=== PATIENT | female | born 1940 | race Caucasian/White ===

== ENCOUNTER 2017-02-13 16:16 | Emergency (ER) | payer MEDICARE ==
[~2017-02-13 16:16] MED LIST: ATOR20TA58 PO; CALC-98 PO; HYDR12.53 PO; LISI10TA2 PO; MOXI3DRO2 LEFTEYE; NEPA1.7D LEFTEYE; PRED5DRO16 LEFTEYE
[2017-02-13] MEDS ORDERED: IV NORMAL SALINE 1,000ML 1,000 ML IV ONE (17:00)
[2017-02-13 17:36] LABS: BASO # 0.1 x10^3/uL (0.0-0.2); BASO % 1 % (0-3); EOS # 0.2 x10^3/uL (0.0-0.7); EOS % 3 % (0-3); HEMATOCRIT 39.8 % (36.0-47.0); HEMOGLOBIN 14.2 g/dL (12.0-15.5); LYMPH # 1.3 x10^3/uL (1.0-4.8); LYMPH % 17 % (24-48); MEAN CORPUSCULAR HEMOGLOBIN 32 pg (25-35); MEAN CORPUSCULAR HGB CONC 36 g/dL (31-37); MEAN CORPUSCULAR VOLUME 90 fL (79-100); MONO # 0.7 x10^3/uL (0.0-1.1); MONO % 9 % (0-9); NEUT # 5.7 x10^3uL (1.8-7.7); NEUT % 71 % (31-73); PLATELET COUNT 269 x10^3/uL (140-400); RED BLOOD COUNT 4.41 x10^6/uL (3.50-5.40); RED CELL DISTRIBUTION WIDTH 13.4 % (11.5-14.5)
[2017-02-13 17:42] LABS: CALCIUM 9.2 mg/dL (8.5-10.1); GFR 54.1; POTASSIUM 3.3 mmol/L (3.5-5.1)
[2017-02-13 17:47] LABS: BILIRUBIN,URINE NEG (NEG); CLARITY,URINE CLEAR; COLOR,URINE YELLOW; GLUCOSE,URINE NEG (NEG); NITRITE,URINE NEG (NEG); UROBILINOGEN,URINE 0.2 mg/dL (0.2 mg/dL)
[2017-02-13 17:48] LABS: BACTERIA,URINE 0 /HPF (0-FEW); RBC,URINE RARE /HPF (0-2); SQUAMOUS EPITHELIAL CELL,UR FEW /LPF
--- NOTE | 2017-02-13 18:22 | RAD ---
CT abdomen and pelvis without contrast Indication:Abd pain mid-section w/ diarrhea x 9 days, w/o PO and IV contrast per Dr. pearce. . Technique: Contiguous axial images are obtained through the abdomen and pelvis. No intravenous or oral contrast per request. Multiplanar reformatted images obtained. Exposure: One or more of the following individualized dose reduction techniques were utilized for this examination: 1. Automated exposure control 2. Adjustment of the mA and/or kV according to patient size 3. Use of iterative reconstruction technique. Comparison:None are available Findings: Urinary tracts: No evidence of hydronephrosis. No obstructive ureteric calculus is seen. There are several tiny right renal calcifications but no obstructive intrarenal calculi. Evaluation of solid viscera, bowel and vasculature is compromised by the noncontrast technique. Lower thorax: Linear opacity in the left lung base, laterally with some adjacent pleural thickening. Pneumoperitoneum:No gross pneumoperitoneum. Liver: Unremarkable Spleen: Unremarkable Pancreas: Unremarkable Kidneys: Small low-density lesion at the lower pole of the left kidney measures 13 mm, and measures water density characteristics compatible with a cyst 2 Hounsfield units. Adrenals:No evidence of mass. Gallbladder: No calcified stone Aorta: Mild atheromatous calcifications. Lymph nodes: No significant enlargement GI tract: No bowel obstruction. No paracolonic inflammation. Appendix: Not visualized. Ascites: No gross ascites. Urinary bladder: Not opacified or distended limiting evaluation. No evidence of pelvic mass. Bones: Degenerative changes of the spine. IMPRESSION: 1. There is linear opacity at the left lung base laterally, may represent pleural-parenchymal scarring, or some atelectasis and small effusion. 2. No acute findings in the abdomen or pelvis. Electronically signed by: Paolo Almaraz MD (02/13/2017 6:19 PM) [place] [id number]
[2017-02-13 20:15] VITALS: BP 127/58
--- NOTE | 2017-02-13 22:17 | ED.ADGEN ---
Past History Past Medical History: High Cholesterol, Hypertension, Renal Disease, Other Past Surgical History: Hysterectomy, Knee Replacement, Other Alcohol Use: None Drug Use: None Adult General HPI HPI Patient is a 86-year-old woman, history of hypertension, hyperlipidemia, stage II kidney disease, who presents to the emergency department with a complaint of "dehydration". Patient states that she's been experiencing diarrhea since last Tuesday, states that she will have abdominal cramping immediately before she experiences a loose stool, whereupon cramping is resolved. No nausea or vomiting , does report decreased appetite, no urinary complaints, no fevers or chills, no flank pain, no chest pain, shortness of breath. She states that her was recently in the hospital, certainly feel, otherwise no sick contacts or exposures, no recent travel or surgery. Patient states that she was seen by her primary care provider on , days ago, at that time she laboratory studies performed that showed hyponatremia and hypokalemia, she states that she was told to stay well-hydrated, to use Lomotil, and to take potassium supplementation. She states however when she began taking Lomotil today, she that she was not supposed to take potassium with Lomotil. She states however since taking Lomotil she is only had 2 loose stools today, and the stools, as opposed to multiple episodes throughout the last several days, and that the stools are better formed. She denies any blood in her stools. She denies any pain currently, states that she feels "dry in my mouth", and as though she is dehydrated. Denies any lightheadedness, dizziness, near syncope or other complaints, no swelling extremities, no rashes. She states that she had a colonoscopy performed several years ago that was unremarkable. She states that she does have history of "a spastic colon". Review of Systems Review of Systems Constitutional: Denies fever or chills []"dehydration". Eyes: Denies change in visual acuity, redness, or eye pain [] HENT: Denies nasal congestion or sore throat [] Respiratory: Denies cough or shortness of breath [] Cardiovascular: No additional information not addressed in HPI [] GI: Abdominal cramping with diarrhea, no nausea or vomiting, no bloody stools.[] : Denies dysuria or hematuria [] Musculoskeletal: Denies back pain or joint pain [] Integument: Denies rash or skin lesions [] Neurologic: Denies headache, focal weakness or sensory changes [] Endocrine: Denies polyuria or polydipsia [] Current Medications Current Medications Current Medications Medications (Trade) Dose Ordered Sig/Ena Start Time Stop Time Status Last Admin Dose Admin Sodium Chloride 1,000 ml @ 1,000 mls/hr 1X ONCE 02/13/17 17:00 02/13/17 17:59 DC 02/13/17 17:15 1,000 MLS/HR Allergies Allergies Allergies Coded Allergies Type Severity Reaction Last Updated Verified Tetanus Vaccines and Toxoid Allergy Severe Swelling 01/23/14 Yes influenza virus vaccine, specific Allergy Severe Swelling 01/23/14 Yes aspirin Allergy Intermediate 01/23/14 Yes Physical Exam Physical Exam Constitutional: Well developed, well nourished, no acute distress, non-toxic appearance. [] HENT: Normocephalic, atraumatic, bilateral external ears normal, oropharynx moist, no oral exudates, nose normal. [] Eyes: PERRLA, EOMI, conjunctiva normal, no discharge. [] Neck: Normal range of motion, no tenderness, supple, no stridor. [] Cardiovascular:Heart rate regular rhythm, no murmur, S1, S2, rubs or gallops. [] Lungs & Thorax: Bilateral breath sounds clear to auscultation, no wheezing, rhonchi, rales. No crepitus or tenderness. [] Abdomen: Bowel sounds normal, soft, mild initial patient in the lower abdomen, no rebound or rigidity, no guarding, no masses, no pulsatile masses. [] Skin: Warm, dry, no erythema, no rash. [] Back: No tenderness, no CVA tenderness. [] Extremities: No tenderness, no cyanosis, no clubbing, ROM intact, no edema. [] Negative Homans sign. Neurologic: Alert and oriented X 3, normal motor function, normal sensory function, no focal deficits noted. [] Psychologic: Affect normal, judgement normal, mood normal. [] Current Patient Data Vital Signs Vital Signs Date Time Temp Pulse Resp B/P (MAP) Pulse Ox O2 Delivery O2 Flow Rate FiO2 02/13/17 20:15 98.0 77 18 127/58 (81) 97 02/13/17 18:45 Room Air Lab Results Laboratory Tests Test 02/13/17 17:05 02/13/17 17:10 Urine Collection Type Unknown Urine Color Yellow Urine Clarity Clear Urine pH 6.5 Urine Specific Paul <=1.005 Urine Protein Neg (NEG-TRACE) Urine Glucose (UA) Neg mg/dL (NEG) Urine Ketones (Stick) Neg mg/dL (NEG) Urine Blood Small (NEG) Urine Nitrite Neg (NEG) Urine Bilirubin Neg (NEG) Urine Urobilinogen Dipstick 0.2 mg/dL (0.2 mg/dL) Urine Leukocyte Esterase Neg (NEG) Urine RBC Rare /HPF (0-2) Urine WBC 1-4 /HPF (0-4) Urine Squamous Epithelial Cells Few /LPF Urine Bacteria 0 /HPF (0-FEW) White Blood Count 8.0 x10^3/uL (4.0-11.0) Red Blood Count 4.41 x10^6/uL (3.50-5.40) Hemoglobin 14.2 g/dL (12.0-15.5) Hematocrit 39.8 % (36.0-47.0) Mean Corpuscular Volume 90 fL (79-100) Mean Corpuscular Hemoglobin 32 pg (25-35) Mean Corpuscular Hemoglobin Concent 36 g/dL (31-37) Red Cell Distribution Width 13.4 % (11.5-14.5) Platelet Count 269 x10^3/uL (140-400) Neutrophils (%) (Auto) 71 % (31-73) Lymphocytes (%) (Auto) 17 % (24-48) L Monocytes (%) (Auto) 9 % (0-9) Eosinophils (%) (Auto) 3 % (0-3) Basophils (%) (Auto) 1 % (0-3) Neutrophils # (Auto) 5.7 x10^3uL (1.8-7.7) Lymphocytes # (Auto) 1.3 x10^3/uL (1.0-4.8) Monocytes # (Auto) 0.7 x10^3/uL (0.0-1.1) Eosinophils # (Auto) 0.2 x10^3/uL (0.0-0.7) Basophils # (Auto) 0.1 x10^3/uL (0.0-0.2) Sodium Level 129 mmol/L (136-145) L Potassium Level 3.3 mmol/L (3.5-5.1) L Chloride Level 95 mmol/L (98-107) L Carbon Dioxide Level 24 mmol/L (21-32) Anion Gap 10 (6-14) Blood Urea Nitrogen 7 mg/dL (7-20) Creatinine 1.0 mg/dL (0.6-1.0) Estimated GFR (Cockcroft-Gault) 54.1 Glucose Level 101 mg/dL (70-99) H Lactic Acid Level 1.2 mmol/L (0.4-2.0) Calcium Level 9.2 mg/dL (8.5-10.1) EKG EKG Not indicated.[] Radiology/Procedures Radiology/Procedures [][address] [address] IMAGING REPORT Signed PATIENT: EMILIANO GALVAN ACCOUNT: [id number] : 1940 LOCATION: ER AGE: 76 SEX: F EXAM STATUS: REG ER ORD. PHYSICIAN: MILTON PEARCE DO REASON: abd pain/diarrhea PROCEDURE: CT ABDOMEN PELVIS WO CONTRAST CT abdomen and pelvis without contrast Indication:Abd pain mid-section w/ diarrhea x 9 days, w/o PO and IV contrast per Dr. pearce. . Technique: Contiguous axial images are obtained through the abdomen and pelvis. No intravenous or oral contrast per request. Multiplanar reformatted images obtained. Exposure: One or more of the following individualized dose reduction techniques were utilized for this examination: 1. Automated exposure control 2. Adjustment of the mA and/or kV according to patient size 3. Use of iterative reconstruction technique. Comparison:None are available Findings: Urinary tracts: No evidence of hydronephrosis. No obstructive ureteric calculus is seen. There are several tiny right renal calcifications but no obstructive intrarenal calculi. Evaluation of solid viscera, bowel and vasculature is compromised by the noncontrast technique. Lower thorax: Linear opacity in the left lung base, laterally with some adjacent pleural thickening. Pneumoperitoneum:No gross pneumoperitoneum. Liver: Unremarkable Spleen: Unremarkable Pancreas: Unremarkable Kidneys: Small low-density lesion at the lower pole of the left kidney measures 13 mm, and measures water density characteristics compatible with a cyst 2 Hounsfield units. Adrenals:No evidence of mass. Gallbladder: No calcified stone Aorta: Mild atheromatous calcifications. Lymph nodes: No significant enlargement GI tract: No bowel obstruction. No paracolonic inflammation. Appendix: Not visualized. Ascites: No gross ascites. Urinary bladder: Not opacified or distended limiting evaluation. No evidence of pelvic mass. Bones: Degenerative changes of the spine. IMPRESSION: 1. There is linear opacity at the left lung base laterally, may represent pleural-parenchymal scarring, or some atelectasis and small effusion. 2. No acute findings in the abdomen or pelvis. Electronically signed by: Paolo Almaraz MD (02/13/2017 6:19 PM) [facility] DICTATED AND SIGNED BY: PAOLO ALMARAZ MD DATE: 02/13/171807 CC: MILTON PEARCE DO; LOUISE SALCEDO MD ~ Course & Med Decision Making Course & Med Decision Making Pertinent Labs and Imaging studies reviewed. (See chart for details) Patient's vital signs within normal limits, she is afebrile. Mild tenderness in the abdomen noted, and with patient's report of copious loose stools over the past several days, patient is agreeable to receiving CT of abdomen and pelvis to further elucidate symptoms. Due to patient's concern for her kidney function , CT of the abdomen and pelvis ordered without contrast, did not reveal any evidence of acute abdominal findings. Laboratory studies revealed a hyponatremia at 129, and a hypokalemia at 3.3. Creatinine is 1.1. I did speak with Dr. Ferreira, who is covering for the patient's primary care provider, he relates that the patient had laboratory studies performed on 02/09, that revealed a sodium of 128, and a potassium of 3.4. Patient had a C. difficile culture that was negative. The patient was then placed on potassium supplementation, repeat laboratory studies performed next day revealed a sodium of 126, and a potassium of 3.8. I discussed with Dr. Ferreira that the patient' s laboratory studies and a relatively improved, with a sodium 129, and a potassium of 3.3, although patient did not take her potassium supplementation today due to concerns for mixing this with Lomotil. Patient also stated is exhibiting in significant improvement of her diarrhea, has had no further stools since arrival in the ED, and only experienced 2 stools today. Patient this time is stating that she feels "much much better", and is no longer thirsty , after receiving a liter of normal saline. Dr. Ferreira recommends the patient follow up in the office tomorrow for repeat laboratory studies, to continue potassium supplementation 20 mEq daily, and Lomotil as directed. I did discuss these recommendations and patient's laboratory studies with trending improvement of her sodium, at bedside with patient and . Patient is ambulating without difficulty in the ED, denies any lightheadedness or dizziness , and is status is no further stools. She is not experiencing abdominal cramping , or other concerning symptoms. She is agreeable with the plan to continue the potassium supplementation today, and has medications at home, and to continue the Lomotil as directed, along with her typical medications, she states she'll be able to follow-up tomorrow morning in the office for repeat laboratory studies, and is anxious to go home. We did discuss concerning symptoms that prompt return to the ED, patient voiced understanding and agreement, discharged home in stable condition with her with plan and precautions as above. Final Impression Final Impression [] Problems: Dragon Disclaimer Dragon Disclaimer This electronic medical record was generated, in whole or in part, using a voice recognition dictation system. Departure: Impression: Primary Impression: Diarrhea Additional Impressions: Hyponatremia Hypokalemia Disposition: HOME, SELF-CARE Condition: IMPROVED MILTON PEARCE DO Feb 13, 2017 22:17
== END 2017-02-13 20:15 | disposition home or self-care (01) ==
LOC: ER 16:16
DX: R19.7 Diarrhea, unspecified (principal); E87.6 Hypokalemia; E87.1 Hypo-osmolality and hyponatremia; E86.0 Dehydration; E78.00 Pure hypercholesterolemia, unspecified; I10 Essential (primary) hypertension; N28.9 Disorder of kidney and ureter, unspecified; Z88.6 Allergy status to analgesic agent; Z88.7 Allergy status to serum and vaccine
CPT/HCPCS: 36415; 74176; 80048; 81001; 83605; 85025; 96360; 99285-25; J7030

== ENCOUNTER → 2017-11-15 | Outpatient (CLI) | payer MEDICARE ==
--- NOTE | 2017-11-15 17:26 | RAD ---
Bone densitometry scan, 11/15/2017: HISTORY: Bone density screening, chronic kidney disease The lumbar spine and right hip were examined utilizing a DEXA technique. The bone mineral density in the lumbar spine as measured from the L1-L4 levels is 1.12 g/sq cm yielding a T score of -0.5. This value is in the normal range. On the previous study of 11/25/2015 the lumbar spine T score was -0.2. The total T score at the right hip is -1.1 compatible with osteopenia. On the previous study the right hip T score was -0.9. IMPRESSION: 1. Continued normal bone mineral density measurement in the lumbar spine. 2. Mild osteopenia has developed at the right hip. Electronically signed by: Narciso Cervantes MD (11/15/2017 5:22 PM) [facility]
== END | disposition home or self-care (01) ==
LOC: DXRAD 09:34
PROVIDERS: ATTEND Nurse Practitioner Family
DX: I12.9 Hypertensive chronic kidney disease with stage 1 through stage 4 chronic kidney disease, or unspecified chronic kidney disease (principal); N18.2 Chronic kidney disease, stage 2 (mild); M85.88 Other specified disorders of bone density and structure, other site; E87.6 Hypokalemia; E78.00 Pure hypercholesterolemia, unspecified
CPT/HCPCS: 77080

== ENCOUNTER → 2018-01-10 | Day surgery (SDC) | payer MEDICARE ==
[~2018-01-10] MED LIST changes: +ALBUTEROL SULFATE 2.5 MG/3 ML NEBU. NEB PRN; +ATROPINE 0.5 MG/5 ML DISP.SYRIN. IV PRN; +IV RINGERS SOLUTION,LACTATED 1,000 ML IV SCH; +LIDOCAINE 2% PF Vial for OR 5 ML VIAL. ONE; +NALOXONE 0.4 MG/ML VIAL. IV PRN; +ONDANSETRON PF 4 MG/2 ML VIAL. IV PRN; +PROPOFOL 40 ML IV ONE; +diphenhydrAMINE 50 MG/ML VIAL IV PRN
[2018-01-10 11:59] VITALS: BP 132/67
--- NOTE | 2018-01-12 09:13 | PATHOLOGY ---
[facility] Accession Number: [id number] . 01 Material submitted: . ASCENDING COLON BIOPSY AT 90CM . 01 Clinical history: . Screening colon . 02 Diagnosis: Colon biopsies, ascending colon at 90 cm: - Tubulovillous adenoma. . (JPM:vjm;01/11/2018) AGA/01/11/2018 . 02 Comment: There is no high grade dysplasia or evidence of malignancy. . (JPM:vjm;01/11/2018) . 02 Electronically signed: . Alan Mulligan MD, Pathologist NPI- [id number] . 01 Gross description: . Received in formalin labeled "Kimberly Blackman, BX of ascending colon at 90 cm," are 3 segments of lopez soft tissue measuring 0.8 x 0.6 x 0.2 cm in aggregate dimensions and ranging from 0.3 to 0.4 cm in maximum dimension. The specimen is submitted entirely in cassette A1. (TSD; 01/10/2018) TOB/TOB . 02 Pathologist provided ICD-10: D12.2 . 02 CPT . 145401 Specimen Comment: A courtesy copy of this report has been sent to Specimen Comment: [phone], . Specimen Comment: Report sent to / DR SALCEDO Performed at: 01 [facility] [address] [facility] [address], [place] [id number] MD Zeus Ramirez MD Phone: [phone] Performed at: 02 [facility] [address] [place], [place] [id number] MD Alan Mulligan MD Phone: [phone]
== END | disposition home or self-care (01) ==
LOC: SURG 10:20
PROVIDERS: ATTEND Surgery
DX: Z12.11 Encounter for screening for malignant neoplasm of colon (principal); D12.2 Benign neoplasm of ascending colon; M19.90 Unspecified osteoarthritis, unspecified site; I12.9 Hypertensive chronic kidney disease with stage 1 through stage 4 chronic kidney disease, or unspecified chronic kidney disease; N18.9 Chronic kidney disease, unspecified; Z79.899 Other long term (current) drug therapy; Z88.6 Allergy status to analgesic agent; Z90.710 Acquired absence of both cervix and uterus; Z98.890 Other specified postprocedural states
CPT/HCPCS: 45380; 88305; J2704; J7120; J2001